=== PATIENT | male | born 1945 | race Caucasian/White ===

== ENCOUNTER 2020-05-02 13:30 | Inpatient (IN) | payer MEDICARE, OTHER ==
[~2020-05-02] VITALS: Ht 182.9 cm; Wt 91.5 kg
[2020-05-02] MEDS ORDERED: IV NORMAL SALINE 500ML 500 ML IV ONE (14:00)
--- NOTE | 2020-05-02 14:01 | PHYS DOC ---
Adult General Chief Complaint Chief Complaint: ALTERED MENTAL STATUS HPI HPI Patient is a 75-year-old male who presents via EMS for altered mental status. Little is known about patient and he is a poor historian. Per EMS report, patient was recently hospitalized at [facility] for sepsis with source being pneumonia. He had a lengthy inpatient stay and was subsequently discharged to local LTAC facility for further care. LTAC staff noticed decreased mentation per baseline from when they saw him on arrival over the past 1 week prompting them to call EMS for transport and evaluation at our facility today. It is unknown what his previous baseline mentation is at this time. Per chart review, it is confirmed that he was recently treated for pneumonia. It also appears that he has cirrhosis of the liver, acute lymphocytic anemia for which details are unknown, among other serious medical comorbidities such as CAD with prior CABG, pacemaker, and Greenwood catheter that has not been changed since arrival to outpatient facility. He was recently tested for COVID on April 05 and negative, has not had any recorded fever or known COVID-19 positive contacts. At this time, outlying facility reported he is a full code Review of Systems Review of Systems Fourteen body systems of review of systems have been reviewed. See HPI for pertinent positives and negative responses, other watts all other systems are negative, non-pertinent or non-contributory Physical Exam Physical Exam Constitutional: Well developed, well nourished, no acute distress, non-toxic appearance, appears fluid overloaded with obvious anasarca to bilateral lower extremities up to his waist. [] HENT: Normocephalic, atraumatic, bilateral external ears normal, oropharynx moist, no oral exudates, nose normal. [] Eyes: PERRLA, EOMI, conjunctiva normal, yellow discharge noted to left eyelid [] Neck: Normal range of motion, no tenderness, supple, no stridor. [] Cardiovascular:Heart rate regular rhythm, no murmur [] Lungs & Thorax: Bilateral breath sounds coarse bilaterally [] Abdomen: Bowel sounds normal, soft, protuberant abdomen, no tenderness, no m asses, no pulsatile masses. [] Skin: Warm, dry, no erythema, no rash. [] Back: No tenderness, no CVA tenderness. [] Extremities: No tenderness, no cyanosis, no clubbing, ROM intact, 4+ pitting edema to bilateral lower extremities [] Neurologic: Alert and oriented to self only, believes year is 1920, believes he is located in [facility], normal motor function, normal sensory function, no focal deficits noted. [] Psychologic: Flat affect, mood appropriate for situation [] Current Patient Data Vital Signs Vital Signs Date Time Temp Pulse Resp B/P (MAP) Pulse Ox O2 Delivery O2 Flow Rate FiO2 05/02/20 17:35 72 18 133/52 (79) 96 Nasal Cannula 4.0 05/02/20 17:05 78 25 118/73 (88) 94 Nasal Cannula 4.0 05/02/20 16:36 72 21 120/73 (89) 97 Nasal Cannula 4.0 05/02/20 16:05 70 30 127/78 (94) 94 Nasal Cannula 4.0 05/02/20 15:35 70 24 126/77 (93) 94 Nasal Cannula 4.0 05/02/20 15:06 71 28 119/66 (83) 95 Nasal Cannula 4.0 05/02/20 14:36 71 25 113/73 (86) 97 Nasal Cannula 4.0 05/02/20 14:05 74 24 121/74 (90) 94 Nasal Cannula 4.0 05/02/20 13:30 98.5 70 22 102/70 (81) 97 Nasal Cannula 4.0 Lab Results Laboratory Tests Test 05/02/20 14:05 05/02/20 14:59 05/02/20 16:20 05/02/20 17:55 White Blood Count 14.0 x10^3/uL Red Blood Count 4.15 x10^6/uL Hemoglobin 12.1 g/dL Hematocrit 38.1 % Mean Corpuscular Volume 92 fL Mean Corpuscular Hemoglobin 29 pg Mean Corpuscular Hemoglobin Concent 32 g/dL Red Cell Distribution Width 24.1 % Platelet Count 133 x10^3/uL Neutrophils (%) (Auto) 75 % Lymphocytes (%) (Auto) 17 % Monocytes (%) (Auto) 8 % Eosinophils (%) (Auto) 0 % Basophils (%) (Auto) 0 % Neutrophils # (Auto) 10.5 x10^3uL Lymphocytes # (Auto) 2.4 x10^3/uL Monocytes # (Auto) 1.1 x10^3/uL Eosinophils # (Auto) 0.0 x10^3/uL Basophils # (Auto) 0.0 x10^3/uL Platelet Estimate Decreased Anisocytosis Mod Macrocytosis Mod Sodium Level 136 mmol/L Potassium Level 3.6 mmol/L Chloride Level 101 mmol/L Carbon Dioxide Level 27 mmol/L Anion Gap 8 Blood Urea Nitrogen 17 mg/dL Creatinine 0.8 mg/dL Estimated GFR (Cockcroft-Gault) 94.0 BUN/Creatinine Ratio 21 Glucose Level 92 mg/dL Calcium Level 9.8 mg/dL Magnesium Level 2.0 mg/dL Total Bilirubin 1.5 mg/dL Aspartate Amino Transf (AST/SGOT) 61 U/L Alanine Aminotransferase (ALT/SGPT) 39 U/L Alkaline Phosphatase 314 U/L Ammonia < 10 mcmol/L Creatine Kinase 67 U/L Troponin I Quantitative 0.048 ng/mL OF-Nqy-G-Type Natriuretic Peptide 1066 pg/mL Total Protein 4.9 g/dL Albumin 2.0 g/dL Albumin/Globulin Ratio 0.7 Glucose (Fingerstick) 97 mg/dL Urine Collection Type U cath Urine Color Straw Urine Clarity Turbid Urine pH 5.5 Urine Specific [place] >=1.030 Urine Protein >100 mg/dl Urine Glucose (UA) Neg mg/dL Urine Ketones (Stick) Trace mg/dL Urine Blood Large Urine Nitrite Pos Urine Bilirubin Neg Urine Urobilinogen Dipstick 1.0 mg/dL Urine Leukocyte Esterase Trace Urine RBC 11-20 /HPF Urine WBC Tntc /HPF Urine Bacteria Mod /HPF Urine Opiates Screen Neg Urine Methadone Screen Neg Urine Barbiturates Neg Urine Phencyclidine Screen Neg Urine Amphetamine/Methamphetamine Neg Urine Benzodiazepines Screen Neg Urine Cocaine Screen Neg Urine Cannabinoids Screen Pos Urine Ethyl Alcohol Neg Lactic Acid Level 2.1 mmol/L Current Medications Medications (Trade) Dose Ordered Sig/Samia Route PRN Reason Start Time Stop Time Status Last Admin Dose Admin Sodium Chloride 500 ml @ 0 mls/hr 1X ONCE IV 05/02/20 14:00 05/02/20 14:53 DC 05/02/20 14:51 EKG EKG EKG ordered and interpreted by myself at 1410 hrs. as an idioventricular rhythm at 71 bpm, prolonged QTC at 534, no axis deviation, no ischemic findings, no STEMI [] Radiology/Procedures Radiology/Procedures PROCEDURE: PORTABLE CHEST 1V Single AP view of the chest. Comparison: None. Indication: Altered mental status Findings: Sternotomy wires and left subclavian pacemaker identified. There is a right internal jugular Port-A-Cath with the tip at the SVC right atrial junction.. The heart is enlarged but stable. There is no pneumothorax or effusion. No air space or interstitial disease. Impression: 1. No acute cardiopulmonary process. Electronically signed by: Sourav Marr MD (05/02/2020 2:42 PM) [id number] Course & Med Decision Making Course & Med Decision Making Airway patent, breathing unlabored, vital signs obtained and initially hypoten sive History limited due to patient's disorientation and fact that he is a poor historian, comprehensive physical exam and subsequent laboratory and imaging studies ordered IV access obtained, initially fluid resuscitated with 500 mL IV normal saline and passive leg raise maneuver performed with improvement in patient's presenting hypotension. Further fluid resuscitation efforts were discontinued due to patient's third spacing ED course reviewed, concern for sepsis with source being UTI. He also has what appears to be left bacterial conjunctivitis. Patient past medical history complicated, case complicated due to decreased mentation and lack of history In all, I made decision to admit patient for further medical evaluation, diagnostic work-up, and intervention On-call hospitalist, Dr. Combs, was contacted and case discussed. He agreed given complexity of patient case that he required ICU admission and continued medical management Despite patient's disorientation, I discussed case with him, he was agreeable to admission for further medical intervention. He remains full code at this time. We have been unsuccessful trying to contact family members at this time. Patient stabilized prior to ER departure to [facility] for continued medical management in the ICU Critical Care Time This patient required critical care. Due to the fact that the patient required a significant amount of one on one physician - patient contact time, ordering and review of studies, arranging urgent treatment with development of a management plan, evaluation of patients response to treatment with frequent reassessments, and discussions with other providers this patient required critical care time in excess of 30 minutes. Critical care time was indicated due to the inherent instability and/or potential for instability in this patient. The critical care time that is allocated to this patient is above and beyond any time spent on any other billable procedures performed on this patient. Dragon Disclaimer Dragon Disclaimer This electronic medical record was generated, in whole or in part, using a voice recognition dictation system. Date and Time of Assessment Date: May 02, 2020 Time: 14:00 Vital Signs Vital Signs Vital Signs Date Time Temp Pulse Resp B/P (MAP) Pulse Ox O2 Delivery O2 Flow Rate FiO2 05/02/20 17:35 72 18 133/52 (79) 96 Nasal Cannula 4.0 05/02/20 13:30 98.5 Respirations Respiratory Effort: Normal Respiratory Pattern: Normal Cardiovascular Pulse Rhythm: Regular Lung Sounds Breath Sounds: Coarse Capillary Refill Capillary Refill: Rt Hand < 3 seconds Peripheral Pulse Pulse Location: Monitor Pulse Strength: Normal (2+) Pulse Assessment Method: Monitor Integumentary Skin: Warm Skin Moisture: Dry Skin Turgor: Normal Skin Color: warm, dry Fingernail Color: WNL Departure Departure: Impression: Primary Impression: Sepsis Additional Impressions: UTI (urinary tract infection) Bacterial conjunctivitis of left eye History of acute lymphoblastic leukemia (ALL) Anasarca Cirrhosis Normocytic anemia Disposition: 01 HOME/RESIDENCE PRIOR TO ADM Condition: STABLE Referrals: ERICA HAYDEN MD (PCP) Justification of Admission: Justification of Admission: Justification of Admission Dx: Yes Sepsis: Altered Mental Status Problem Qualifiers EH SHUKLA DO May 02, 2020 14:01
[2020-05-02 14:30] LABS: BASO % 0 % (0-3); EOS % 0 % (0-3); HEMATOCRIT 38.1 % (39.0-53.0); HEMOGLOBIN 12.1 g/dL (13.0-17.5); LYMPH # 2.4 x10^3/uL (1.0-4.8); LYMPH % 17 % (24-48); MEAN CORPUSCULAR HEMOGLOBIN 29 pg (25-35); MEAN CORPUSCULAR HGB CONC 32 g/dL (31-37); MEAN CORPUSCULAR VOLUME 92 fL (79-100); MONO # 1.1 x10^3/uL (0.0-1.1); MONO % 8 % (0-9); NEUT # 10.5 x10^3uL (1.8-7.7); NEUT % 75 % (31-73); PLATELET COUNT 133 x10^3/uL (140-400); RED BLOOD COUNT 4.15 x10^6/uL (4.30-5.70); RED CELL DISTRIBUTION WIDTH 24.1 % (11.5-14.5)
--- NOTE | 2020-05-02 14:45 | RAD ---
Single AP view of the chest. Comparison: None. Indication: Altered mental status Findings: Sternotomy wires and left subclavian pacemaker identified. There is a right internal jugular Port-A-Cath with the tip at the SVC right atrial junction.. The heart is enlarged but stable. There is no pneumothorax or effusion. No air space or interstitial disease. Impression: 1. No acute cardiopulmonary process. Electronically signed by: Sourav Marr MD (05/02/2020 2:42 PM) [id number]
[2020-05-02 14:55] LABS: PLT ESTIMATE DECREASED (ADEQUATE)
[2020-05-02 14:56] LABS: ANISOCYTOSIS MOD
--- NOTE | 2020-05-02 15:52 | EKG ---
[address] [address] Test Date: 2020-05-02 Test Time: 14:06:25 Pat Name: BRONSON ANDRADE Department: Room: Gender: M Health Coordinator: : 1945 Requested By: EH SHUKLA Order Number: [id number] Reading MD: Measurements Intervals [place] Rate: 71 P: DC: QRS: -7 QRSD: 206 T: 123 QT: 486 QTc: 534 Interpretive Statements SINUS RHYTHM LEFTWARD AXIS LOW LIMB LEAD VOLTAGE NON SPECIFIC INTRAVENTRICULAR BLOCK QRS(T) CONTOUR ABNORMALITY CONSIDER INFERIOR INFARCT ABNORMAL ECG RI6.02 No previous ECG available for comparison
[2020-05-02] MEDS ORDERED: cefTRIAXone SODIUM 1 GM VIAL ONE (16:30)
[2020-05-02] MEDS ORDERED: IV NORMAL SALINE 50ML 50 ML ONE (16:30)
[2020-05-02] MEDS ORDERED: IV NORMAL SALINE 100ML 100 ML ONE (16:36)
[2020-05-02 16:42] LABS: BARBITURATES NEG (NEG); BENZODIAZEPINES NEG (NEG); CANNABINOIDS POS (NEG); COCAINE NEG (NEG); METHADONE NEG (NEG); OPIATES NEG (NEG); PHENCYCLIDINE NEG (NEG)
[2020-05-02 16:43] LABS: AMPHETAMINE/METHAMPHETAMINE NEG (NEG)
[2020-05-02 16:47] LABS: CLARITY,URINE TURBID; COLOR,URINE STRAW
[2020-05-02 16:48] LABS: BILIRUBIN,URINE NEG (NEG); GLUCOSE,URINE NEG (NEG); NITRITE,URINE POS (NEG)
[2020-05-02 16:49] LABS: BACTERIA,URINE MOD /HPF (0-FEW); WBC,URINE TNTC /HPF (0-4)
--- NOTE | 2020-05-02 17:48 | HP ---
ADMIT DATE: 05/02/2020 ADMISSION HISTORY AND PHYSICAL ATTENDING PHYSICIAN: Dr. Dailey. CHIEF COMPLAINT: Altered mentation. HISTORY OF PRESENT ILLNESS: The patient is age 75, has multiple medical issues. He was recently sent to a local [facility] for followup regarding pneumonia and sepsis due to Escherichia coli. This was earlier on 04/14/2020. He has been managed there but brought in today with altered mentation. Clinically, he appears intravascularly dry with a diminished blood pressures, but he has third space edema with significant swelling and anasarca extending all the way up his legs, thighs and then into his lower abdomen. There is a longstanding history of iron deficiency anemia along with cirrhosis of the liver. He was a heavy drinker at one time. In the chart, there is also a diagnosis of acute lymphoblastic anemia and relapsed, I do not know the details of the staging. He has had COPD with chronic respiratory failure, Streptococcus pneumoniae, recently treated, paroxysmal atrial fibrillation, acute on chronic diastolic congestive heart failure, iron deficiency anemia, thrombocytopenia, type 2 diabetes, diabetic neuropathy, hyperlipidemia, hypertension and hypertensive heart disease. He also has atherosclerotic heart disease with previous bypass surgery. He has also had gastroesophageal reflux disease, benign prostatic hypertrophy, ascites, cognitive disorders with some baseline dementia, cardiac pacemaker, presence of a prosthetic heart valve and oxygen-dependent chronic obstructive pulmonary disease. In the ED, he had a chest x-ray, which showed vascular congestion, no acute infiltrates, permanent pacemaker and cardiomegaly. CURRENT MEDICATIONS: Reviewed. These are from [place]. He was on scheduled Tylenol, acidophilus, Colace, Crestor 10 mg daily, Decadron 3 times a day for acute lymphoblastic anemia, finasteride, ipratropium, Lantus insulin, Marinol, metformin 1000 mg b.i.d., multivitamin, Neurontin, Protonix, trimethoprim sulfa, trazodone, Zofran, vitamin A and D. I do not see any anticoagulation and Coumadin dose is here. FAMILY HISTORY: Unobtainable. CODE STATUS: Unobtainable, we are in the process of ascertaining this. REVIEW OF SYSTEMS: Unfortunately unobtainable due to the patient's mentation. PHYSICAL EXAMINATION: GENERAL: When I saw him, this is a chronically ill-appearing gentleman. VITAL SIGNS: Initial vital signs in the ED showed a blood pressure very marginal in the 100 and 110 mmHg. He was cool. He was not febrile. HEENT: Head is without trauma. Pupils are reactive. Sclerae was nonicteric. Oropharynx is clear. NECK: Supple. No adenopathy. LUNGS: Diminished breath sounds at the bases. CARDIOVASCULAR: Showed distant heart tones. No gallops. Peripheral pulses were palpable, but weak. ABDOMEN: Distended, a bit tympanitic. I do not appreciate any fluid wave. I could not assess any liver or spleen enlargement at this time. EXTREMITIES: Show 4+ edema extending all the way up to his thighs and pelvis. NEUROLOGIC: The patient is speaking well. He has no focal deficits, but he remains very confused and disoriented. LABORATORY DATA: Admission hemoglobin was 12.1 g/dL with white count of 14,000. Nonfasting blood sugar is 97. Ammonia level was less than 10. CK was adequate. His BNP was 1066 and his troponin was 0.04. ASSESSMENT: 1. This 75-year-old gentleman has altered mentation, most likely on the basis of underlying dementia with hepatic encephalopathy, although his ammonia level is normal. Clinically, he has encephalopathy. This is metabolic whether it is hepatic related remains to be seen, in recent studies, there are no good correlation with serum ammonia, one can be encephalopathic without having elevated ammonia level. 2. Acute on chronic congestive heart failure. 3. Anasarca. I believe he is significantly in third space __ with significant edema and fluid collection, but intravascularly dry. 4. History of acute lymphoblastic leukemia, currently in remission. I am not aware of the treatment records of those are not available. 5. Recent pneumonia. 6. Recent sepsis with urinary tract infection. 7. Paroxysmal atrial fibrillation. 8. Iron deficiency anemia. 9. Type 2 diabetes. 10. Hypertension. 11. Chronic obstructive pulmonary disease. 12. History of ascites. 13. History of permanent cardiac pacemaker. He is not on any anticoagulation at this time. 14. Generalized debilitation. PLAN: 1. Admit to our ICU. 2. Gentle diuresis with monitoring his systolic blood pressure. 3. Serial chemistries. 4. I should contact the family to try to ascertain his code status. He tells me at one time, [facility], but those records are not available at this time. His prognosis remains quite poor with all other medical issues, I do believe this patient may be actively dying. Certainly comfort measures will be considered. I will try to ascertain the code status as soon as he is admitted. JO-ANN DAILEY MD DR: NELY/nestor JOB#: [id number] / [id number]
[2020-05-02 18:04] LABS: CALCIUM 9.8 mg/dL (8.5-10.1); CREATININE 0.8 mg/dL (0.7-1.3); POTASSIUM 3.6 mmol/L (3.5-5.1)
[2020-05-02 18:10] LABS: ALBUMIN/GLOBULIN RATIO 0.7 (1.0-1.7); TOTAL BILIRUBIN 1.5 mg/dL (0.2-1.0); TOTAL PROTEIN 4.9 g/dL (6.4-8.2)
--- NOTE | 2020-05-02 19:10 | NUR ---
Pt admitted from ER to ICU bed 3 via [facility], accompanied by EMS and nursing staff. Pt transferred from [facility] to bed x4 assist. Pt turned and skin assessment completed. Pt with multiple open bleeding pressure ulcer to bilateral buttock, pictures taken and placed in chart. Pt with excoriation to groin and 4+ edema from his upper thighs down to his ankles. Admission assessment completed. Pt is alert to self only and was able to tell me his birthday but otherwise confused and forgetful. Pt very lethargic and ill appearing. Health history and home medications per [facility] paperwork. Pt is a full code, verified with records and with [place]. Pt with 16F Green[place] cath in place, draining cloudy straw urine. Wound care, Dietary and Case management consulted. Pt was given written information regarding hospital policies, unit procedures and contact persons. Valuables were checked and left at bedside. Dr. Combs called for unit orders. Pt did trigger sepsis: Blood cx done in ER, IV Rocephin given and reordered for unit. Repeat Lactic still 2.1. Pt is not to receive IVF bolus. Pt was able to take HS meds crushed and ate snack that was fed to him. Bed alarm on.
[2020-05-02 19:29] VITALS: BP 123/78
[2020-05-02] MEDS ORDERED: [UNRECOGNIZED DRUG - OTHER] (19:36)
[2020-05-02] MEDS ORDERED: FINA5TAB4 PO (19:36)
[2020-05-02] MEDS ORDERED: METF10007 PO (19:36)
[2020-05-02] MEDS ORDERED: IPRA15SP NS (19:36)
[2020-05-02] MEDS ORDERED: DRON10CA5 PO (19:36)
[2020-05-02] MEDS ORDERED: DEXA1TAB PO (19:36)
[2020-05-02] MEDS ORDERED: TRAZ-125 PO (19:36)
[2020-05-02] MEDS ORDERED: ONDA8TAB9 PO (19:36)
[2020-05-02] MEDS ORDERED: PANT40TA3 PO (19:36)
[2020-05-02] MEDS ORDERED: IPRA3AMP29 NEB (19:36)
[2020-05-02] MEDS ORDERED: MULT-245 PO (19:36)
[2020-05-02] MEDS ORDERED: LACT1CAP6 PO (19:36)
[2020-05-02] MEDS ORDERED: DOCU-109 PO (19:36)
[2020-05-02] MEDS ORDERED: SULF-16 PO (19:36)
[2020-05-02] MEDS ORDERED: ACET325T21 PO (19:36)
[2020-05-02] MEDS ORDERED: INSU100I13 SQ (19:36)
[2020-05-02] MEDS ORDERED: GABA100C81 PO (19:36)
[2020-05-02] MEDS ORDERED: CRESTOR10 MG PO (19:36)
[2020-05-02 20:29] VITALS: BP 97/65
[2020-05-02] MEDS ORDERED: ONDANSETRON ODT 4 MG TAB.RAPDIS PO PRN (20:45)
[2020-05-02] MEDS ORDERED: FUROSEMIDE 80 MG TABLET PO SCH (21:00)
[2020-05-02] MEDS ORDERED: POTASSIUM CHLORIDE 20 MEQ TABLET.ER. PO SCH (21:00)
[2020-05-02 21:05] VITALS: BP 97/60
[2020-05-02] MEDS: DEXAMETHASONE 0.5 MG TABLET PO SCH (21:28)
[2020-05-02] MEDS: VITS A & D/LANOLIN TOPICAL OINTMENT 42GM TUBE. TP SCH (21:28)
[2020-05-02] MEDS: INSULIN GLARGINE SYRINGE. SQ SCH (21:29)
[2020-05-02] MEDS ORDERED: FUROSEMIDE 100 MG/10 ML VIAL IVP SCH (21:30)
[2020-05-02 21:57] VITALS: BP 106/69
[2020-05-02 23:00] VITALS: BP 108/69
[2020-05-02 23:30] VITALS: BP 106/67
[2020-05-03] VITALS (25 sets, daily range): BP systolic 92–116; BP diastolic 53–75
[2020-05-03 06:42] LABS: BASO % 0 % (0-3); EOS % 0 % (0-3); HEMATOCRIT 36.7 % (39.0-53.0); HEMOGLOBIN 11.8 g/dL (13.0-17.5); LYMPH # 2.6 x10^3/uL (1.0-4.8); LYMPH % 20 % (24-48); MEAN CORPUSCULAR HEMOGLOBIN 29 pg (25-35); MEAN CORPUSCULAR HGB CONC 32 g/dL (31-37); MEAN CORPUSCULAR VOLUME 90 fL (79-100); MONO # 1.1 x10^3/uL (0.0-1.1); MONO % 9 % (0-9); NEUT # 9.1 x10^3uL (1.8-7.7); NEUT % 71 % (31-73); PLATELET COUNT 134 x10^3/uL (140-400); RED BLOOD COUNT 4.06 x10^6/uL (4.30-5.70); WHITE BLOOD COUNT 12.9 x10^3/uL (4.0-11.0)
[2020-05-03 06:51] LABS: CALCIUM 9.2 mg/dL (8.5-10.1); CREATININE 0.9 mg/dL (0.7-1.3)
[2020-05-03 06:55] LABS: POTASSIUM 2.3 mmol/L (3.5-5.1)
[2020-05-03] MEDS ORDERED: MAGNESIUM SULFATE 1GM 100 ML IV ONE (07:00)
[2020-05-03] MEDS: FINASTERIDE 5 MG TABLET PO SCH (08:00)
[2020-05-03] MEDS: LACTOBACILLUS RHAMNOSUS GG 1 CAPSULE. PO SCH ×2 (08:00→20:45)
[2020-05-03] MEDS: PANTOPRAZOLE 40 MG TABLET. PO SCH (08:00)
[2020-05-03] MEDS: metFORMIN 500 MG TABLET PO SCH (08:00)
[2020-05-03] MEDS: POTASSIUM CHLORIDE 20 MEQ TABLET.ER. PO SCH ×2 (08:01→20:45)
[2020-05-03] MEDS: DEXAMETHASONE 0.5 MG TABLET PO SCH ×3 (08:01→20:46)
[2020-05-03] MEDS: VITS A & D/LANOLIN TOPICAL OINTMENT 42GM TUBE. TP SCH ×2 (09:00→21:00)
--- NOTE | 2020-05-03 09:09 | PN ---
DATE: 05/03/2020 ATTENDING PHYSICIAN: Dr. Dailey. SUBJECTIVE: He is better. He is awake. Yesterday, he was fairly encephalopathic. I believe there is underlying dementia, probably on the basis of cirrhosis and Wernicke-Korsakoff syndrome. In any event, the ammonia level really does not correlate. He is doing better today. He had an excellent response to diuresis. OBJECTIVE FINDINGS: VITAL SIGNS: Blood pressure today is marginal at 105/68, but is actually improved from this morning. His heart rate is 70 and paced, temperature 97.1 degrees Fahrenheit, oxygen saturation 94%, requiring 5 liters of supplemental oxygen by nasal cannula. HEENT: Head is without trauma. The pupils are reactive. The sclerae are nonicteric. The oropharynx is clear. There is no stridor. NECK: Supple, no bruits. LUNGS: Coarse rhonchi bilaterally. He also has diminished breath sounds. CARDIOVASCULAR: Showed regular heart tones. Peripheral pulses are palpable, but weak. There are no obvious gallops. ABDOMEN: Obese, protuberant. Hypoactive bowel sounds. I cannot appreciate any liver or splenic enlargement. He does have a bit of ascites fluid shift. EXTREMITIES: Still show 4+ pitting edema extending up to his thighs. PERTINENT LABORATORY STUDIES: His potassium is 2.3 mEq per liter, sodium 141, creatinine 0.9 mg percent, nonfasting blood sugar 108. ASSESSMENT: 1. A 75-year-old gentleman with altered mentation, most likely on the basis of hepatic encephalopathy. I do believe he has a component of Wernicke-Korsakoff syndrome. He is actually better. He is still confused, but he is able to have a fairly normal conversation. 2. Acute on chronic congestive heart failure, etiology to be determined whether this is ischemic or not. 3. Anasarca. I believe he is significantly third space wet with intravascularly dry component. 4. History of acute lymphoblastic leukemia, currently in remission. 5. Recent pneumonia. 6. Chronic obstructive pulmonary disease, advanced. 7. Recent sepsis with urinary tract infection. 8. Paroxysmal atrial fibrillation, currently paced rhythm. 9. Iron deficiency anemia. 10. Type 2 diabetes mellitus. 11. Essential hypertension. 12. Ascites. 13. History of permanent cardiac pacemaker. He is not on any anticoagulation this time. I suspect he is auto-anticoagulated from his liver disease. 14. Generalized debilitation. PLAN: 1. Keep in ICU. 2. He remains a DNR. I am trying to contact the to see if she has power of estate attorney. 3. Diuresis with Lasix. He has responded well. 4. Serial chemistries. 5. Potassium and magnesium replacement has been ordered. His prognosis remains poor given he has multiorgan system failure. I will call his later to ascertain his code status. JO-ANN DAILEY MD DR: NELY/nestor JOB#: [id number] / [id number]
--- NOTE | 2020-05-03 09:17 | PN ---
DATE: 05/03/2020 ADDENDUM I had a long discussion over the telephone with the patient's . I told her the diagnosis and what the plan is. She tells me that the patient does have advanced directives or living will. He is a DNR. Therefore, he will be made a DNR status. JO-ANN DAILEY MD DR: NELY/nestor JOB#: [id number] / [id number]
[2020-05-03] MEDS ORDERED: FUROSEMIDE 40 MG/4 ML VIAL IVP ONE (10:00)
[2020-05-03] MEDS ORDERED: POTASSIUM CHLORIDE 20 MEQ TABLET.ER. PO ONE (10:20)
--- NOTE | 2020-05-03 10:21 | PDOC2 ---
ARTURO FUNES MARIANA 05/03/20 1021: CARDIAC CONSULT DATE OF CONSULT DOS: DATE: 05/03/20 TIME: 10:11 REASON FOR CONSULT Reason for Consult CHF REFERRING PHYSICIAN Referring Physician Dr. Combs SOURCE Source: Chart review, Patient HPI History of Present Illness This is a 75 yo male who presented due to altered mental status. Was recently treated for PNA, sepsis at [facility]. Had lengthy hospitalization. Was discharged the LTAC facility. Staff recognized change in mentation over the past week which prompted further evaluation. Was noted in CHF, which prompted this consult. Does have extensive medical history including leukemia, cirrhosis, CAD, CHF, SSS, permanent AFIB, s/p bioprosthetic AVR, and COPD. Patient is confused and unable to prior any meaningful history. Present denies any shortness of breath of chest pain. PAST MEDICAL HISTORY Cardiovascular: AFIB, CAD, CHF, HTN, hyperipidemia, valve insufficiency Pulmonary: COPD, Pneumonia GI: GERD Heme/Onc: Anemia NOS, Other (B-cell lymphoblastic lymphoma) Hepatobiliary: Cirrhosis (with h/o heavy ETOH abuse ) Musculoskeletal: Osteoarthritis Renal/: Benign prostatic enlarg. Endocrine: Diabetes PAST SURGICAL HISTORY Past Surgical History: CABG, Pacemaker FAMILY HISTORY Family History: Family History Unknown SOCIAL HISTORY Smoke: No ALCOHOL: other (h/o heavy use ) Drugs: Marijuana Lives: with Family (has recently been at LTAC) CURRENT MEDICATIONS Current Medications Current Medications Sodium Chloride 500 ml @ 0 mls/hr 1X ONCE IV Last administered on 05/02/20at 14:51; Start 05/02/20 at 14:00; Stop 05/02/20 at 14:53; Status DC Ceftriaxone Sodium 2 gm/ Sodium Chloride 100 ml @ 200 mls/hr 1X ONCE IV Last administered on 05/02/20at 16:38; Start 05/02/20 at 16:30; Stop 05/02/20 at 16:59; Status DC Ceftriaxone Sodium (Rocephin) 1 gm STK-MED ONCE .ROUTE ; Start 05/02/20 at 16:30; Stop 05/02/20 at 16:30; Status DC Sodium Chloride 50 ml @ As Directed STK-MED ONCE .ROUTE ; Start 05/02/20 at 16:30; Stop 05/02/20 at 16:31; Status DC Ceftriaxone Sodium (Rocephin) 2 gm STK-MED ONCE IV ; Start 05/02/20 at 16:36; Stop 05/02/20 at 16:37; Status DC Sodium Chloride 100 ml @ As Directed STK-MED ONCE .ROUTE ; Start 05/02/20 at 16:36; Stop 05/02/20 at 16:37; Status DC Ceftriaxone Sodium 1 gm/ Sodium Chloride 50 ml @ 100 mls/hr Q24H IV ; Start 05/03/20 at 16:00 Potassium Chloride (Klor-Con) 20 meq BID PO Last administered on 05/02/20 21:28; Start 05/02/20 at 21:00; Stop 05/03/20 at 07:06; Status DC Furosemide (Lasix) 80 mg BID94 PO ; Start 05/02/20 at 21:00; Status Cancel Finasteride (Proscar) 5 mg DAILY PO Last administered on 05/03/20at 08:00; Start 05/03/20 at 09:00 Pantoprazole Sodium (Protonix) 40 mg DAILYAC PO Last administered on 05/03/20at 08:00; Start 05/03/20 at 07:30 Dexamethasone (Decadron) 1 mg TID PO Last administered on 05/03/20at 08:01; Start 05/02/20 at 21:00 Insulin Glargine (Lantus Syringe) 10 unit QHS SQ Last administered on 05/02/20at 21:29; Start 05/02/20 at 21:00 Metformin HCl (Glucophage) 1,000 mg DAILYWBKFT PO Last administered on 05/03/20at 08:00; Start 05/03/20 at 08:00 Ondansetron HCl (Zofran Odt) 8 mg PRN Q8HRS PRN PO NAUSEA/VOMITING; Start 05/02/20 at 20:45 Vitamin A/Vitamin D (Vitamin A & D Ointment) 1 ariel BID TP Last administered on 05/02/20 21:28; Start 05/02/20 at 21:00 Furosemide (Lasix) 80 mg BID94 IVP Last administered on 05/02/20 21:29; Start 05/02/20 at 21:30; Stop 05/03/20 at 07:06; Status DC Potassium Chloride (Klor-Con) 40 meq BID PO Last administered on 05/03/20at 08:01; Start 05/03/20 at 07:15 Magnesium Sulfate 100 ml @ 100 mls/hr 1X ONCE IV Last administered on 05/03/20at 08:01; Start 05/03/20 at 07:00; Stop 05/03/20 at 07:59; Status DC Furosemide (Lasix) 80 mg DAILY IVP ; Start 05/04/20 at 09:00 Lactobacillus Rhamnosus (Culturelle) 1 cap BID PO Last administered on 05/03/20at 08:00; Start 05/03/20 at 09:00 Furosemide (Lasix) 40 mg 1X ONCE IVP ; Start 05/03/20 at 10:00; Stop 05/03/20 at 10:01; Status UNV Potassium Chloride (Klor-Con) 40 meq 1X ONCE PO ; Start 05/03/20 at 10:00; Stop 05/03/20 at 10:01; Status UNV Active Scripts Active Reported [A & D Ointment] 1 Ariel BID Apply twice a day and as needed to Stage II Sacral Wound Colace (Docusate Sodium) 100 Mg Capsule 100 Mg PO PRN BID PRN Probiotic (Lactobacillus Acidophilus) 1 Each Capsule 1 Each PO BID Acetaminophen 325 Mg Tablet 650 Mg PO PRN Q6HRS PRN Protonix (Pantoprazole Sodium) 40 Mg Tablet.dr 40 Mg PO DAILYAC Neurontin (Gabapentin) 100 Mg Capsule 100 Mg PO TID Multi Vitamin Daily (Multivitamin) 1 Each Tablet 1 Each PO DAILY Metformin Hcl 1,000 Mg Tablet 1,000 Mg PO DAILYWBKFT Dronabinol 10 Mg Capsule 2.5 Mg PO BID Lantus Solostar (Insulin Glargine,Hum.rec.anlog) 100 Unit/1 Ml Insuln.pen 10 Unit SQ QHS Duoneb 0.5-3(2.5) Mg/3 Ml (Albuterol/Ipratropium) 3 Ml Ampul.neb 3 Ml NEB BID Ipratropium [place] 15 Ml [place] 15 Ml NS QID Finasteride 5 Mg Tablet 5 Mg PO DAILY Dexamethasone 1 Mg Tablet 1 Mg PO TID Crestor (Rosuvastatin Calcium) 10 Mg Tablet 10 Mg PO HS Zofran (Ondansetron Hcl) 8 Mg Tablet 8 Mg PO PRN Q8HRS PRN Trazodone Hcl 100 Mg Tablet 100 Mg PO HS Sulfamethoxazole-Tmp Ss Tablet (Sulfamethoxazole/Trimethoprim) 1 Each Tablet 1 Each PO QMWF Every Saturday, Saturday, and Saturday ALLERGIES Allergies: Coded Allergies: No Known Drug Allergies (Unverified , 05/02/20) ROS Review of Systems 14 point ROS conducted with pertinent positives noted above in HPI PHYSICAL EXAM General: Alert, Cooperative, Other (confused ) HEENT: Atraumatic Lungs: Other (diminished bases) Heart: Other (v-paced with underlying AFIB ) Abdomen: Soft Extremities: Other (2+ bilateral LE edema ) Skin: No breakdown Neuro: Sensation intact Psych/Mental Status: Other (confused ) MUSCULOSKELETAL: Osteoarthritic changes both hands VITALS Vital Signs Vital Signs Date Time Temp Pulse Resp B/P (MAP) Pulse Ox O2 Delivery O2 Flow Rate FiO2 05/03/20 08:00 76 20 102/63 (76) 94 Nasal Cannula 5.0 05/03/20 06:03 97.1 LABS LABS Laboratory Tests Test 05/02/20 14:05 05/02/20 14:59 05/02/20 16:20 05/02/20 17:55 White Blood Count 14.0 x10^3/uL (4.0-11.0) Red Blood Count 4.15 x10^6/uL (4.30-5.70) Hemoglobin 12.1 g/dL (13.0-17.5) Hematocrit 38.1 % (39.0-53.0) Mean Corpuscular Volume 92 fL (79-100) Mean Corpuscular Hemoglobin 29 pg (25-35) Mean Corpuscular Hemoglobin Concent 32 g/dL (31-37) Red Cell Distribution Width 24.1 % (11.5-14.5) Platelet Count 133 x10^3/uL (140-400) Neutrophils (%) (Auto) 75 % (31-73) Lymphocytes (%) (Auto) 17 % (24-48) Monocytes (%) (Auto) 8 % (0-9) Eosinophils (%) (Auto) 0 % (0-3) Basophils (%) (Auto) 0 % (0-3) Neutrophils # (Auto) 10.5 x10^3uL (1.8-7.7) Lymphocytes # (Auto) 2.4 x10^3/uL (1.0-4.8) Monocytes # (Auto) 1.1 x10^3/uL (0.0-1.1) Eosinophils # (Auto) 0.0 x10^3/uL (0.0-0.7) Basophils # (Auto) 0.0 x10^3/uL (0.0-0.2) Platelet Estimate Decreased (ADEQUATE) Anisocytosis Mod Macrocytosis Mod Sodium Level 136 mmol/L (136-145) Potassium Level 3.6 mmol/L (3.5-5.1) Chloride Level 101 mmol/L (98-107) Carbon Dioxide Level 27 mmol/L (21-32) Anion Gap 8 (6-14) Blood Urea Nitrogen 17 mg/dL (8-26) Creatinine 0.8 mg/dL (0.7-1.3) Estimated GFR (Cockcroft-Gault) 94.0 BUN/Creatinine Ratio 21 (6-20) Glucose Level 92 mg/dL (70-99) Calcium Level 9.8 mg/dL (8.5-10.1) Magnesium Level 2.0 mg/dL (1.8-2.4) Total Bilirubin 1.5 mg/dL (0.2-1.0) Aspartate Amino Transf (AST/SGOT) 61 U/L (15-37) Alanine Aminotransferase (ALT/SGPT) 39 U/L (16-63) Alkaline Phosphatase 314 U/L (46-116) Ammonia < 10 mcmol/L (11-34) Creatine Kinase 67 U/L (39-308) Troponin I Quantitative 0.048 ng/mL (0-0.055) AJ-Nbl-D-Type Natriuretic Peptide 1066 pg/mL (0-449) Total Protein 4.9 g/dL (6.4-8.2) Albumin 2.0 g/dL (3.4-5.0) Albumin/Globulin Ratio 0.7 (1.0-1.7) Glucose (Fingerstick) 97 mg/dL (70-99) Urine Collection Type U cath Urine Color Straw Urine Clarity Turbid Urine pH 5.5 Urine Specific [place] >=1.030 Urine Protein >100 mg/dl (NEG-TRACE) Urine Glucose (UA) Neg mg/dL (NEG) Urine Ketones (Stick) Trace mg/dL (NEG) Urine Blood Large (NEG) Urine Nitrite Pos (NEG) Urine Bilirubin Neg (NEG) Urine Urobilinogen Dipstick 1.0 mg/dL (0.2 mg/dL) Urine Leukocyte Esterase Trace (NEG) Urine RBC 11-20 /HPF (0-2) Urine WBC Tntc /HPF (0-4) Urine Bacteria Mod /HPF (0-FEW) Urine Opiates Screen Neg (NEG) Urine Methadone Screen Neg (NEG) Urine Barbiturates Neg (NEG) Urine Phencyclidine Screen Neg (NEG) Urine Amphetamine/Methamphetamine Neg (NEG) Urine Benzodiazepines Screen Neg (NEG) Urine Cocaine Screen Neg (NEG) Urine Cannabinoids Screen Pos (NEG) Urine Ethyl Alcohol Neg (NEG) Lactic Acid Level 2.1 mmol/L (0.4-2.0) Test 05/02/20 20:54 05/02/20 21:25 05/03/20 00:38 05/03/20 06:15 Glucose (Fingerstick) 92 mg/dL (70-99) 132 mg/dL (70-99) Lactic Acid Level 2.1 mmol/L (0.4-2.0) White Blood Count 12.9 x10^3/uL (4.0-11.0) Red Blood Count 4.06 x10^6/uL (4.30-5.70) Hemoglobin 11.8 g/dL (13.0-17.5) Hematocrit 36.7 % (39.0-53.0) Mean Corpuscular Volume 90 fL (79-100) Mean Corpuscular Hemoglobin 29 pg (25-35) Mean Corpuscular Hemoglobin Concent 32 g/dL (31-37) Red Cell Distribution Width 24.0 % (11.5-14.5) Platelet Count 134 x10^3/uL (140-400) Neutrophils (%) (Auto) 71 % (31-73) Lymphocytes (%) (Auto) 20 % (24-48) Monocytes (%) (Auto) 9 % (0-9) Eosinophils (%) (Auto) 0 % (0-3) Basophils (%) (Auto) 0 % (0-3) Neutrophils # (Auto) 9.1 x10^3uL (1.8-7.7) Lymphocytes # (Auto) 2.6 x10^3/uL (1.0-4.8) Monocytes # (Auto) 1.1 x10^3/uL (0.0-1.1) Eosinophils # (Auto) 0.0 x10^3/uL (0.0-0.7) Basophils # (Auto) 0.0 x10^3/uL (0.0-0.2) Sodium Level 141 mmol/L (136-145) Potassium Level 2.3 mmol/L (3.5-5.1) Chloride Level 103 mmol/L (98-107) Carbon Dioxide Level 30 mmol/L (21-32) Anion Gap 8 (6-14) Blood Urea Nitrogen 16 mg/dL (8-26) Creatinine 0.9 mg/dL (0.7-1.3) Estimated GFR (Cockcroft-Gault) 82.0 Glucose Level 108 mg/dL (70-99) Calcium Level 9.2 mg/dL (8.5-10.1) ECHOCARDIOGRAM Echocardiogram 09/23/19 - TRANSESOPHAGEAL ECHOCARDIOGRAM Interpretation Summary Study 1 year post watchman. Watchman device is well seated. No hallie-device regurgitation is seen. There is no evidence of LA or RA thrombus. The interatrial septum appears intact. No PFO or residual ASD from transeptal by color Doppler There is a normally functioning 23mm Biocar prosthesis in the aortic position. MG=19mmHg. There is no regurgitation. There is normal biventricular systolic function with estimated LVEF=60%. ASSESSMENT/PLAN Assessment/Plan 1. Encephalopathy in setting of UTI 2. Acute on chronic diastolic CHF 3. CAD s/p CABG. CP free. Clinically stable 4. SSS s/p PPM (single chamber [facility]). Recent device check with normal function. Follows with MICK[facility] Espitia 5. Hypertension; low end 6. Hyperlipidemia; on Crestor 7. Diabetes, II; as per IM 8. s/p bioprosthetic AVR in 2008 9. Permanent AFIB s/p Watchman device. Previously on warfarin therapy, but this was discontinued d/t GIB 10. Cirrhosis with history of heavy alcoholism 11. Anasarca, protein calorie malnutrition 12. Leukocytosis, lactic acidosis. Recent admission of PNA/sepsis at [facility] 13. Hypokalemia, severe 14. BPH; on flomax 15. UTI; antibiotic therapy 16. B-cell lymphoblastic lymphoma Recommendations Diuresis as BP allows. Echo ordered Check Mg Monitor labs, electrolytes and replace as warranted Consider albumin Ongoing antibiotic therapy Supportive care DEDRICK WORTHINGTON MD 05/03/20 1433: CARDIAC CONSULT ASSESSMENT/PLAN Assessment/Plan Patient seen and examined. Agree with SPRINKLER FITTER's assessment and plan. Continue diuresis for acute on chronic diastolic heart failure. Recent ARTEMIO showed normal LV systolic function. Permanent atrial fibrillation, rate controlled. s/p Watchman LAAO with recent ARTEMIO showing well-seated device. s/p bioprosthetic AVR, CAD s/p CABG, SSS s/p PPM clinically stable Mental status changes secondary to metabolic encephalopathy from UTI Continue antibiotics per IM Thank you for your consultation ARTURO FUNES APRN May 03, 2020 10:21 DEDIRCK WORTHINGTON MD May 03, 2020 14:33
[2020-05-03 10:24] LABS: PLT ESTIMATE DECREASED (ADEQUATE)
[2020-05-03 10:25] LABS: OVALOCYTES FEW; POLYCHROMASIA PRESENT; TEAR DROP CELLS FEW
[2020-05-03 10:26] LABS: ANISOCYTOSIS SLIGHT
--- NOTE | 2020-05-03 14:38 | CARD ---
MR#: [id number] Date of Study: 05/03/2020 Ordering Physician: JO-ANN DAILEY, Referring Physician: JO-ANN DAILEY, Tech: Raissa Albarado APPROVED REPORT EXAM: Two-dimensional and M-mode echocardiogram with Doppler and color Doppler. Other Information Quality : FairHR: 71bpm Technically limited study due to INDICATION Congestive Heart Failure Surgery/Intervention Status/Post Aortic Valve Replacement: Date: 2016 2D DIMENSIONS Left Atrium(2D)4.1 (1.6-4.0cm)IVSd1.1 (0.7-1.1cm) Aortic Root(2D)2.7 (2.0-3.7cm)LVDd4.5 (3.9-5.9cm) LVOT Diameter1.9 (1.8-2.4cm)PWd1.2 (0.7-1.1cm) LVDs3.0 (2.5-4.0cm)FS (%) 33.9 % SV57.3 mlLVEF(%)62.9 (>50%) Aortic Valve AoV Peak Brian.267.3cm/sAoV VTI50.8cm AO Peak GR.22.9mmHgLVOT Peak Brian.153.1cm/s LVOT VTI 30.32cmAO Mean GR.14mmHg KENISHA (VMAX)1.64ll1TGK (VTI)1.71cm2 Mitral Valve MV E Utdqctvh48.9cm/sMV E Peak Gr.2mmHg MV DECEL [id number] A Poxnsipm53.1cm/s MV E Mean Gr.1mmHgE/A Ratio1.9 Pulmonary Valve PV Peak Aplfaabm979.0cm/sPV Peak Grad.4mmHg Tricuspid Valve TR P. [id number]/sRAP [id number] TR Peak Gr.80zlEcXLRA06foYk LEFT VENTRICLE The left ventricle is normal size. There is mild concentric left ventricular hypertrophy. The left ve ntricular systolic function is normal. The Ejection Fraction is 60%. Septal wall consistent with pace maker activation. Transmitral Doppler flow pattern is Grade II-pseudonormal filling dynamics. RIGHT VENTRICLE The right ventricle is mildly dilated. There is normal right ventricular wall thickness. The right ve ntricular systolic function is normal. There is a pacemaker lead in the right ventricle. ATRIA The left atrium is mildly to moderately dilated. The right atrium is moderately dilated. The interatr ial septum is intact with no evidence for an atrial septal defect or patent foramen ovale as noted on 2-D or Doppler imaging. AORTIC VALVE Doppler and Color Flow revealed no significant aortic regurgitation. Calculated aortic valve area is 2.1 cm2 with maximum pressure gradient of 29 mmHg and mean pressure gradient of 14 mmHg. The bioprost hetic aortic valve appears normal. MITRAL VALVE The mitral valve is normal in structure and function. There is no evidence of mitral valve prolapse. There is no mitral valve stenosis. Doppler and Color Flow revealed no mitral valve regurgitation note d. TRICUSPID VALVE The tricuspid valve is normal in structure and function. Doppler and Color Flow revealed mild tricusp id regurgitation with an estimated PAP of 41 mmHg. There is no tricuspid valve stenosis. PULMONIC VALVE The pulmonic valve is not well visualized. Doppler and Color Flow revealed no pulmonic valvular regur gitation. GREAT VESSELS The aortic root is normal in size. The IVC is normal in size and collapses >50% with inspiration. PERICARDIAL EFFUSION There is no evidence of significant pericardial effusion. Critical Notification Critical Value: No <Conclusion> The left ventricular systolic function is normal. The Ejection Fraction is 60%. Septal wall consistent with pacemaker activation. Transmitral Doppler flow pattern is Grade II-pseudonormal filling dynamics. There is a pacemaker lead in the right atrium and right ventricle. The left atrium is mildly to moderately dilated. The bioprosthetic aortic valve appears to be well seated and functioning well.. Mean gradient 14 mmH g. Mild tricuspid regurgitation with an estimated PAP of 41 mmHg. There is no evidence of significant pericardial effusion. Signed by : Flaquito Dejesus, Electronically Approved : 05/03/2020 14:38:20
--- NOTE | 2020-05-03 16:28 | NUR ---
Wound Care Wound Type/Assessment: patient seen per wound care consult. see wound assessment. wound assessed and measured at this time. patient has a bilateral buttock stage 3 pressure ulcer with DTI. Treatment Recommendations/Plan: Recommendations of continuing with A & D ointment, as ordered. patient needs to be turning every 2 hours. patient turned to the right side at this time with the wedge. Offloading surface/device: patient currently on an ICU bed at this time. Notified CHAYO Allison about the POC and wound care will continue to f/u for changes
--- NOTE | 2020-05-03 18:37 | NUR ---
PT still lethargic today. Pt is somewhat more interactive, just tired. PT is partially able to verbalize understanding of poc. involved in care and did bring his cell phone up today. Sixto DOMINGO
[2020-05-03 19:35] LABS: CREATININE 0.9 mg/dL (0.7-1.3)
[2020-05-03 19:42] LABS: POTASSIUM 2.4 mmol/L (3.5-5.1)
[2020-05-03] MEDS: INSULIN GLARGINE SYRINGE. SQ SCH (21:30)
[2020-05-04] VITALS (16 sets, daily range): BP systolic 96–112; BP diastolic 40–73
--- NOTE | 2020-05-04 04:41 | NUR ---
Pt oriented to self only. Date, location and purpose of visit is understood but not retained when explained to him. Pt slept most of shift. Woke for med pass; ate a couple bites of ice cream with medications. He c/o generalized aches when rolling, unable to unspecify location or quality. He prefers lying on his right side but also measures lower blood pressure while on the right side. Pt is pleasant and cooperative during position changes but not helpful. Pt frequently moves nasal cannula above his nose while sleeping. Will continue to monitor.
[2020-05-04 06:37] LABS: BASO % 0 % (0-3); EOS % 0 % (0-3); HEMATOCRIT 34.3 % (39.0-53.0); LYMPH # 2.2 x10^3/uL (1.0-4.8); LYMPH % 18 % (24-48); MEAN CORPUSCULAR HEMOGLOBIN 29 pg (25-35); MEAN CORPUSCULAR HGB CONC 32 g/dL (31-37); MEAN CORPUSCULAR VOLUME 91 fL (79-100); MONO % 8 % (0-9); NEUT # 9.4 x10^3uL (1.8-7.7); NEUT % 74 % (31-73); PLATELET COUNT 100 x10^3/uL (140-400); RED BLOOD COUNT 3.79 x10^6/uL (4.30-5.70); RED CELL DISTRIBUTION WIDTH 23.6 % (11.5-14.5); WHITE BLOOD COUNT 12.7 x10^3/uL (4.0-11.0)
[2020-05-04 06:45] LABS: CALCIUM 8.6 mg/dL (8.5-10.1); CREATININE 0.8 mg/dL (0.7-1.3)
[2020-05-04 06:49] LABS: POTASSIUM 2.7 mmol/L (3.5-5.1)
[2020-05-04] MEDS ORDERED: POTASSIUM CHLORIDE 20 MEQ TABLET.ER. PO ONE ×2 (08:00→09:00)
[2020-05-04] MEDS: FINASTERIDE 5 MG TABLET PO SCH (08:37)
[2020-05-04] MEDS: metFORMIN 500 MG TABLET PO SCH (08:37)
[2020-05-04] MEDS: PANTOPRAZOLE 40 MG TABLET. PO SCH (08:38)
[2020-05-04] MEDS: LACTOBACILLUS RHAMNOSUS GG 1 CAPSULE. PO SCH ×2 (08:38→21:09)
[2020-05-04] MEDS: POTASSIUM CHLORIDE 20 MEQ TABLET.ER. PO SCH ×10 (08:39→21:08)
[2020-05-04] MEDS: DEXAMETHASONE 0.5 MG TABLET PO SCH ×3 (08:41→21:08)
[2020-05-04] MEDS: VITS A & D/LANOLIN TOPICAL OINTMENT 42GM TUBE. TP SCH ×2 (09:00→21:07)
[2020-05-04] MEDS ORDERED: FUROSEMIDE 100 MG/10 ML VIAL IVP SCH (09:00)
--- NOTE | 2020-05-04 09:19 | PDOC ---
CARDIO Progress Notes Date & Time Date of Service DATE: 05/04/20 TIME: 09:13 Time of Evaluation 09:13 Subjective Notes feels sleepy. No chest pain, palpitations, dizziness, diaphoresis Vitals Vitals Vital Signs Date Time Temp Pulse Resp B/P (MAP) Pulse Ox O2 Delivery O2 Flow Rate FiO2 05/04/20 06:38 70 14 107/73 (84) 97 Nasal Cannula 5.0 05/04/20 04:25 97.0 Weight Weight [ ] Input and Output I.O. Intake and Output 05/04/20 07:00 Intake Total 1325 ml Output Total 1950 ml Balance -625 ml Intake Oral 1175 ml IV Total 150 ml Output Urine Total 1950 ml # Voids 50 # Bowel Movements 1 Laboratory Labs Laboratory Tests Test 05/02/20 14:05 05/02/20 14:59 05/02/20 16:20 05/02/20 17:55 White Blood Count 14.0 x10^3/uL (4.0-11.0) Red Blood Count 4.15 x10^6/uL (4.30-5.70) Hemoglobin 12.1 g/dL (13.0-17.5) Hematocrit 38.1 % (39.0-53.0) Mean Corpuscular Volume 92 fL (79-100) Mean Corpuscular Hemoglobin 29 pg (25-35) Mean Corpuscular Hemoglobin Concent 32 g/dL (31-37) Red Cell Distribution Width 24.1 % (11.5-14.5) Platelet Count 133 x10^3/uL (140-400) Neutrophils (%) (Auto) 75 % (31-73) Lymphocytes (%) (Auto) 17 % (24-48) Monocytes (%) (Auto) 8 % (0-9) Eosinophils (%) (Auto) 0 % (0-3) Basophils (%) (Auto) 0 % (0-3) Neutrophils # (Auto) 10.5 x10^3uL (1.8-7.7) Lymphocytes # (Auto) 2.4 x10^3/uL (1.0-4.8) Monocytes # (Auto) 1.1 x10^3/uL (0.0-1.1) Eosinophils # (Auto) 0.0 x10^3/uL (0.0-0.7) Basophils # (Auto) 0.0 x10^3/uL (0.0-0.2) Platelet Estimate Decreased (ADEQUATE) Anisocytosis Mod Macrocytosis Mod Sodium Level 136 mmol/L (136-145) Potassium Level 3.6 mmol/L (3.5-5.1) Chloride Level 101 mmol/L (98-107) Carbon Dioxide Level 27 mmol/L (21-32) Anion Gap 8 (6-14) Blood Urea Nitrogen 17 mg/dL (8-26) Creatinine 0.8 mg/dL (0.7-1.3) Estimated GFR (Cockcroft-Gault) 94.0 BUN/Creatinine Ratio 21 (6-20) Glucose Level 92 mg/dL (70-99) Calcium Level 9.8 mg/dL (8.5-10.1) Magnesium Level 2.0 mg/dL (1.8-2.4) Total Bilirubin 1.5 mg/dL (0.2-1.0) Aspartate Amino Transf (AST/SGOT) 61 U/L (15-37) Alanine Aminotransferase (ALT/SGPT) 39 U/L (16-63) Alkaline Phosphatase 314 U/L (46-116) Ammonia < 10 mcmol/L (11-34) Creatine Kinase 67 U/L (39-308) Troponin I Quantitative 0.048 ng/mL (0-0.055) CP-Twk-W-Type Natriuretic Peptide 1066 pg/mL (0-449) Total Protein 4.9 g/dL (6.4-8.2) Albumin 2.0 g/dL (3.4-5.0) Albumin/Globulin Ratio 0.7 (1.0-1.7) Glucose (Fingerstick) 97 mg/dL (70-99) Urine Collection Type U cath Urine Color Straw Urine Clarity Turbid Urine pH 5.5 Urine Specific [place] >=1.030 Urine Protein >100 mg/dl (NEG-TRACE) Urine Glucose (UA) Neg mg/dL (NEG) Urine Ketones (Stick) Trace mg/dL (NEG) Urine Blood Large (NEG) Urine Nitrite Pos (NEG) Urine Bilirubin Neg (NEG) Urine Urobilinogen Dipstick 1.0 mg/dL (0.2 mg/dL) Urine Leukocyte Esterase Trace (NEG) Urine RBC 11-20 /HPF (0-2) Urine WBC Tntc /HPF (0-4) Urine Bacteria Mod /HPF (0-FEW) Urine Opiates Screen Neg (NEG) Urine Methadone Screen Neg (NEG) Urine Barbiturates Neg (NEG) Urine Phencyclidine Screen Neg (NEG) Urine Amphetamine/Methamphetamine Neg (NEG) Urine Benzodiazepines Screen Neg (NEG) Urine Cocaine Screen Neg (NEG) Urine Cannabinoids Screen Pos (NEG) Urine Ethyl Alcohol Neg (NEG) Lactic Acid Level 2.1 mmol/L (0.4-2.0) Test 05/02/20 20:54 05/02/20 21:25 05/03/20 00:38 05/03/20 06:15 Glucose (Fingerstick) 92 mg/dL (70-99) 132 mg/dL (70-99) Lactic Acid Level 2.1 mmol/L (0.4-2.0) White Blood Count 12.9 x10^3/uL (4.0-11.0) Red Blood Count 4.06 x10^6/uL (4.30-5.70) Hemoglobin 11.8 g/dL (13.0-17.5) Hematocrit 36.7 % (39.0-53.0) Mean Corpuscular Volume 90 fL (79-100) Mean Corpuscular Hemoglobin 29 pg (25-35) Mean Corpuscular Hemoglobin Concent 32 g/dL (31-37) Red Cell Distribution Width 24.0 % (11.5-14.5) Platelet Count 134 x10^3/uL (140-400) Neutrophils (%) (Auto) 71 % (31-73) Lymphocytes (%) (Auto) 20 % (24-48) Monocytes (%) (Auto) 9 % (0-9) Eosinophils (%) (Auto) 0 % (0-3) Basophils (%) (Auto) 0 % (0-3) Neutrophils # (Auto) 9.1 x10^3uL (1.8-7.7) Lymphocytes # (Auto) 2.6 x10^3/uL (1.0-4.8) Monocytes # (Auto) 1.1 x10^3/uL (0.0-1.1) Eosinophils # (Auto) 0.0 x10^3/uL (0.0-0.7) Basophils # (Auto) 0.0 x10^3/uL (0.0-0.2) Platelet Estimate Decreased (ADEQUATE) Polychromasia Present Anisocytosis Slight Tear Drop Cells Few Ovalocytes Few Sodium Level 141 mmol/L (136-145) Potassium Level 2.3 mmol/L (3.5-5.1) Chloride Level 103 mmol/L (98-107) Carbon Dioxide Level 30 mmol/L (21-32) Anion Gap 8 (6-14) Blood Urea Nitrogen 16 mg/dL (8-26) Creatinine 0.9 mg/dL (0.7-1.3) Estimated GFR (Cockcroft-Gault) 82.0 Glucose Level 108 mg/dL (70-99) Calcium Level 9.2 mg/dL (8.5-10.1) Magnesium Level 1.9 mg/dL (1.8-2.4) Test 05/03/20 11:27 05/03/20 16:38 05/03/20 19:20 05/04/20 06:25 Glucose (Fingerstick) 139 mg/dL (70-99) 166 mg/dL (70-99) Sodium Level 138 mmol/L (136-145) 138 mmol/L (136-145) Potassium Level 2.4 mmol/L (3.5-5.1) 2.7 mmol/L (3.5-5.1) Chloride Level 100 mmol/L (98-107) 102 mmol/L (98-107) Carbon Dioxide Level 31 mmol/L (21-32) 35 mmol/L (21-32) Anion Gap 7 (6-14) 1 (6-14) Blood Urea Nitrogen 15 mg/dL (8-26) 14 mg/dL (8-26) Creatinine 0.9 mg/dL (0.7-1.3) 0.8 mg/dL (0.7-1.3) Estimated GFR (Cockcroft-Gault) 82.0 94.0 Glucose Level 178 mg/dL (70-99) 133 mg/dL (70-99) Calcium Level 9.0 mg/dL (8.5-10.1) 8.6 mg/dL (8.5-10.1) White Blood Count 12.7 x10^3/uL (4.0-11.0) Red Blood Count 3.79 x10^6/uL (4.30-5.70) Hemoglobin 11.0 g/dL (13.0-17.5) Hematocrit 34.3 % (39.0-53.0) Mean Corpuscular Volume 91 fL (79-100) Mean Corpuscular Hemoglobin 29 pg (25-35) Mean Corpuscular Hemoglobin Concent 32 g/dL (31-37) Red Cell Distribution Width 23.6 % (11.5-14.5) Platelet Count 100 x10^3/uL (140-400) Neutrophils (%) (Auto) 74 % (31-73) Lymphocytes (%) (Auto) 18 % (24-48) Monocytes (%) (Auto) 8 % (0-9) Eosinophils (%) (Auto) 0 % (0-3) Basophils (%) (Auto) 0 % (0-3) Neutrophils # (Auto) 9.4 x10^3uL (1.8-7.7) Lymphocytes # (Auto) 2.2 x10^3/uL (1.0-4.8) Monocytes # (Auto) 1.0 x10^3/uL (0.0-1.1) Eosinophils # (Auto) 0.0 x10^3/uL (0.0-0.7) Basophils # (Auto) 0.0 x10^3/uL (0.0-0.2) Test 05/04/20 08:22 Glucose (Fingerstick) 166 mg/dL (70-99) Microbiology Micro Microbiology 05/02/20 Blood Culture - Preliminary, Resulted NO GROWTH AFTER 1 DAY... Physical Exams HEENT: Neck Supple W Full Motion Chest: Symmetric Heart: irregularly irregular (v-paced ) Neurology: alert, oriented, follow commands Assessment Assessment 1. Encephalopathy in setting of UTI. 2. Acute on chronic diastolic CHF; better compensated following IV diuresis 3. CAD s/p CABG. CP free. Clinically stable 4. SSS s/p PPM (single chamber [facility] Raimundo). Recent device check with normal function. Follows with MICKY Espitia 5. Hypertension; low end 6. Hyperlipidemia; on Crestor 7. Diabetes, II; as per IM 8. s/p bioprosthetic AVR in 2008 9. Permanent AFIB s/p Watchman device. Previously on warfarin therapy, but this was discontinued d/t GIB 10. Cirrhosis with history of heavy alcoholism 11. Anasarca, protein calorie malnutrition 12. Leukocytosis, lactic acidosis. Recent admission of PNA/sepsis at [facility] 13. Hypokalemia, severe 14. BPH; on flomax 15. UTI; antibiotic therapy. 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 Check Mg and replace as warranted Albumin Ongoing antibiotic therapy. Supportive care ARTURO FUNES APRN May 04, 2020 09:19
[2020-05-04] MEDS ORDERED: ALBUMIN HUMAN 25% 50 ML IV ONE (09:45)
[2020-05-04 12:25] LABS: CALCIUM 8.8 mg/dL (8.5-10.1); GFR 72.6
[2020-05-04 13:06] LABS: POTASSIUM 2.5 mmol/L (3.5-5.1)
[2020-05-04] MEDS ORDERED: POTASSIUM CHLORIDE 20MEQ 100 ML IV SCH (14:30)
[2020-05-04 19:38] LABS: CALCIUM 8.8 mg/dL (8.5-10.1); GFR 72.6; POTASSIUM 3.1 mmol/L (3.5-5.1)
--- NOTE | 2020-05-04 20:13 | PN ---
DATE: 05/04/2020 SUBJECTIVE: The patient is resting, slightly propped up in bed, in no apparent distress, awake, alert, responding appropriately. On questioning him, he denied any chest pain or shortness of breath. Denies any nausea or vomiting. He seemed to be clinically congested; however, he has generalized anasarca and he continued to be extremely hypokalemic. His potassium was extremely low and today it was only 2.5 mEq per liter, although the serum magnesium was 1.9. PHYSICAL EXAMINATION: GENERAL: When I examined him, he looked pale, but not jaundiced or cyanosis. No lymphadenopathy, no thyromegaly. No jugular venous distention, but generalized anasarca. VITAL SIGNS: Her heart rate was 70, blood pressure was 111/60, temperature was 97, respiratory rate was 17, and oxygen saturation was 95% on 5 liters of oxygen. HEAD, EYES, EARS, NOSE AND THROAT: Showed normocephalic, atraumatic. NECK: Supple. HEART: Normal first and second heart sounds. No gallop or murmur. CHEST: Showed central trachea, equal bilateral expansion, air entry, vesicular sounds. No crepitation or rhonchi. ABDOMEN: Markedly distended, soft with positive shifting dullness. There is no tenderness. No guarding or rigidity. No organomegaly. All hernial orifices intact. Bowel sounds normal. NEUROLOGIC: He is awake, alert, responding appropriately. All his cranial nerves are intact. He moves extremities without difficulty. He has generalized anasarca, but no clubbing or cyanosis. He has no flapping tremor. His intake was 3060, output was 4550. LABORATORY DATA: As of this morning, serum sodium was 139, potassium 2.5, chloride 100, bicarbonate 31, anion gap of 8, BUN 15, creatinine 1, estimated GFR was 72 mL per minute, his glucose was 99. Calcium was 8.8, magnesium was 1.9. ASSESSMENT: 1. A 75-year-old gentleman with altered mental status, most likely multifactorial including perhaps hepatic encephalopathy. He also has urinary tract infection with the growth of more than 100,000 colony forming units per mL of gram-negative rods identified as Escherichia coli. 2. Fimqi-mb-rjejvnt congestive heart failure. 3. Alcoholic liver cirrhosis with portal hypertension, ascites. 4. History of acute lymphoblastic leukemia, currently on remission. 5. Recent pneumonia. 6. Chronic obstructive pulmonary disease, advanced. 7. Recent sepsis, urinary tract infection. 8. Paroxysmal atrial fibrillation, currently paced rhythm. 9. Iron deficiency anemia. 10. Type 2 diabetes mellitus. 11. Essential hypertension. 12. Generalized debility. 13. Severe hypokalemia. PLAN: To continue potassium supplement. Continue with IV antibiotic. I will add also spironolactone and to assist with potassium replacement. The patient's overall prognosis is very poor. He is DNR/DNI. I recommended hospice care and I spoke with our social services to discuss this option with his family. ERICA HAYDEN MD DR: HERMELINDA/nestor JOB#: [id number] / [id number]
[2020-05-04] MEDS: SPIRONOLACTONE 25 MG TABLET PO SCH (21:09)
[2020-05-04] MEDS: INSULIN GLARGINE SYRINGE. SQ SCH (21:11)
[2020-05-05] VITALS (15 sets, daily range): BP systolic 88–110; BP diastolic 49–69
--- NOTE | 2020-05-05 06:15 | NUR ---
Pt awake watching TV at change of shift, interacting appropriately with staff. Pt was pleasant and cooperative and even joked around with staff on occasion. Pt was transferred over to specialty bed x4 assist. Pt is forgetful as to why he is here, oriented to self and knows he is in the hospital. Pt slept most of night, waking for 2 snacks during night. Pt was able to feed himself independently, only needing setup help. Pt turned with wedge Q2 hours. Pt on occasion had facial grimace during position changes but stated that "once we got his old bones moving he was fine." Pt was incont of loose stool x1 on this shift.
[2020-05-05 06:32] LABS: BASO % 0 % (0-3); EOS % 0 % (0-3); HEMATOCRIT 30.5 % (39.0-53.0); HEMOGLOBIN 9.8 g/dL (13.0-17.5); LYMPH # 2.1 x10^3/uL (1.0-4.8); LYMPH % 17 % (24-48); MEAN CORPUSCULAR HEMOGLOBIN 30 pg (25-35); MEAN CORPUSCULAR HGB CONC 32 g/dL (31-37); MEAN CORPUSCULAR VOLUME 92 fL (79-100); MONO # 0.9 x10^3/uL (0.0-1.1); MONO % 7 % (0-9); NEUT # 9.3 x10^3uL (1.8-7.7); NEUT % 75 % (31-73); PLATELET COUNT 96 x10^3/uL (140-400); RED BLOOD COUNT 3.32 x10^6/uL (4.30-5.70); RED CELL DISTRIBUTION WIDTH 23.1 % (11.5-14.5); WHITE BLOOD COUNT 12.3 x10^3/uL (4.0-11.0)
[2020-05-05 06:38] LABS: ALBUMIN 1.8 g/dL (3.4-5.0); ALBUMIN/GLOBULIN RATIO 0.7 (1.0-1.7); CALCIUM 8.7 mg/dL (8.5-10.1); CREATININE 0.8 mg/dL (0.7-1.3); POTASSIUM 4.5 mmol/L (3.5-5.1); TOTAL BILIRUBIN 0.9 mg/dL (0.2-1.0); TOTAL PROTEIN 4.3 g/dL (6.4-8.2)
[2020-05-05] MEDS: FINASTERIDE 5 MG TABLET PO SCH (09:23)
[2020-05-05] MEDS: metFORMIN 500 MG TABLET PO SCH (09:23)
[2020-05-05] MEDS: PANTOPRAZOLE 40 MG TABLET. PO SCH (09:23)
[2020-05-05] MEDS: SPIRONOLACTONE 25 MG TABLET PO SCH ×2 (09:24→21:48)
[2020-05-05] MEDS: POTASSIUM CHLORIDE 20 MEQ TABLET.ER. PO SCH ×3 (09:24→21:48)
[2020-05-05] MEDS: LACTOBACILLUS RHAMNOSUS GG 1 CAPSULE. PO SCH ×2 (09:24→21:48)
[2020-05-05] MEDS: DEXAMETHASONE 0.5 MG TABLET PO SCH ×3 (09:24→21:48)
[2020-05-05] MEDS: VITS A & D/LANOLIN TOPICAL OINTMENT 42GM TUBE. TP SCH ×2 (09:25→21:47)
--- NOTE | 2020-05-05 09:28 | PDOC ---
CARDIO Progress Notes Date & Time Date of Service DATE: 05/05/20 TIME: 09:21 Time of Evaluation 09:21 Subjective Notes weak, tired Vitals Vitals Vital Signs Date Time Temp Pulse Resp B/P (MAP) Pulse Ox O2 Delivery O2 Flow Rate FiO2 05/05/20 06:15 97.9 70 16 95/59 (71) 97 Nasal Cannula 3.0 Weight Weight [ ] Input and Output I.O. Intake and Output 05/05/20 07:00 Intake Total 1680 ml Output Total 2800 ml Balance -1120 ml Intake Oral 1430 ml IV Total 200 ml Other 50 ml Output Urine Total 2800 ml # Bowel Movements 1 Laboratory Labs Laboratory Tests Test 05/03/20 11:27 05/03/20 16:38 05/03/20 19:20 05/04/20 06:25 Glucose (Fingerstick) 139 mg/dL (70-99) 166 mg/dL (70-99) Sodium Level 138 mmol/L (136-145) 138 mmol/L (136-145) Potassium Level 2.4 mmol/L (3.5-5.1) 2.7 mmol/L (3.5-5.1) Chloride Level 100 mmol/L (98-107) 102 mmol/L (98-107) Carbon Dioxide Level 31 mmol/L (21-32) 35 mmol/L (21-32) Anion Gap 7 (6-14) 1 (6-14) Blood Urea Nitrogen 15 mg/dL (8-26) 14 mg/dL (8-26) Creatinine 0.9 mg/dL (0.7-1.3) 0.8 mg/dL (0.7-1.3) Estimated GFR (Cockcroft-Gault) 82.0 94.0 Glucose Level 178 mg/dL (70-99) 133 mg/dL (70-99) Calcium Level 9.0 mg/dL (8.5-10.1) 8.6 mg/dL (8.5-10.1) White Blood Count 12.7 x10^3/uL (4.0-11.0) Red Blood Count 3.79 x10^6/uL (4.30-5.70) Hemoglobin 11.0 g/dL (13.0-17.5) Hematocrit 34.3 % (39.0-53.0) Mean Corpuscular Volume 91 fL (79-100) Mean Corpuscular Hemoglobin 29 pg (25-35) Mean Corpuscular Hemoglobin Concent 32 g/dL (31-37) Red Cell Distribution Width 23.6 % (11.5-14.5) Platelet Count 100 x10^3/uL (140-400) Neutrophils (%) (Auto) 74 % (31-73) Lymphocytes (%) (Auto) 18 % (24-48) Monocytes (%) (Auto) 8 % (0-9) Eosinophils (%) (Auto) 0 % (0-3) Basophils (%) (Auto) 0 % (0-3) Neutrophils # (Auto) 9.4 x10^3uL (1.8-7.7) Lymphocytes # (Auto) 2.2 x10^3/uL (1.0-4.8) Monocytes # (Auto) 1.0 x10^3/uL (0.0-1.1) Eosinophils # (Auto) 0.0 x10^3/uL (0.0-0.7) Basophils # (Auto) 0.0 x10^3/uL (0.0-0.2) Test 05/04/20 08:22 05/04/20 11:34 05/04/20 19:20 05/04/20 20:49 Glucose (Fingerstick) 166 mg/dL (70-99) 200 mg/dL (70-99) Sodium Level 139 mmol/L (136-145) 136 mmol/L (136-145) Potassium Level 2.5 mmol/L (3.5-5.1) 3.1 mmol/L (3.5-5.1) Chloride Level 100 mmol/L (98-107) 100 mmol/L (98-107) Carbon Dioxide Level 31 mmol/L (21-32) 29 mmol/L (21-32) Anion Gap 8 (6-14) 7 (6-14) Blood Urea Nitrogen 15 mg/dL (8-26) 15 mg/dL (8-26) Creatinine 1.0 mg/dL (0.7-1.3) 1.0 mg/dL (0.7-1.3) Estimated GFR (Cockcroft-Gault) 72.6 72.6 Glucose Level 199 mg/dL (70-99) 199 mg/dL (70-99) Calcium Level 8.8 mg/dL (8.5-10.1) 8.8 mg/dL (8.5-10.1) Magnesium Level 1.9 mg/dL (1.8-2.4) Test 05/05/20 06:11 05/05/20 08:11 White Blood Count 12.3 x10^3/uL (4.0-11.0) Red Blood Count 3.32 x10^6/uL (4.30-5.70) Hemoglobin 9.8 g/dL (13.0-17.5) Hematocrit 30.5 % (39.0-53.0) Mean Corpuscular Volume 92 fL (79-100) Mean Corpuscular Hemoglobin 30 pg (25-35) Mean Corpuscular Hemoglobin Concent 32 g/dL (31-37) Red Cell Distribution Width 23.1 % (11.5-14.5) Platelet Count 96 x10^3/uL (140-400) Neutrophils (%) (Auto) 75 % (31-73) Lymphocytes (%) (Auto) 17 % (24-48) Monocytes (%) (Auto) 7 % (0-9) Eosinophils (%) (Auto) 0 % (0-3) Basophils (%) (Auto) 0 % (0-3) Neutrophils # (Auto) 9.3 x10^3uL (1.8-7.7) Lymphocytes # (Auto) 2.1 x10^3/uL (1.0-4.8) Monocytes # (Auto) 0.9 x10^3/uL (0.0-1.1) Eosinophils # (Auto) 0.0 x10^3/uL (0.0-0.7) Basophils # (Auto) 0.0 x10^3/uL (0.0-0.2) Prothrombin Time 10.5 SEC (9.4-11.4) Prothromb Time International Ratio 1.0 (0.9-1.1) Sodium Level 138 mmol/L (136-145) Potassium Level 4.5 mmol/L (3.5-5.1) Chloride Level 104 mmol/L (98-107) Carbon Dioxide Level 31 mmol/L (21-32) Anion Gap 3 (6-14) Blood Urea Nitrogen 15 mg/dL (8-26) Creatinine 0.8 mg/dL (0.7-1.3) Estimated GFR (Cockcroft-Gault) 94.0 BUN/Creatinine Ratio 19 (6-20) Glucose Level 180 mg/dL (70-99) Calcium Level 8.7 mg/dL (8.5-10.1) Total Bilirubin 0.9 mg/dL (0.2-1.0) Aspartate Amino Transf (AST/SGOT) 31 U/L (15-37) Alanine Aminotransferase (ALT/SGPT) 28 U/L (16-63) Alkaline Phosphatase 261 U/L (46-116) Ammonia 39 mcmol/L (11-34) Total Protein 4.3 g/dL (6.4-8.2) Albumin 1.8 g/dL (3.4-5.0) Albumin/Globulin Ratio 0.7 (1.0-1.7) Glucose (Fingerstick) 200 mg/dL (70-99) Microbiology Micro Microbiology 05/02/20 Urine Culture - Final, Complete 05/02/20 Antimicrobic Susceptibility - Final, Complete 05/02/20 Blood Culture - Preliminary, Resulted NO GROWTH AFTER 2 DAYS... Physical Exams HEENT: Neck Supple W Full Motion Chest: Symmetric Heart: irregularly irregular (v-paced ) Neurology: alert, oriented, follow commands Assessment Assessment 1. Encephalopathy in setting of UTI. 2. Acute on chronic diastolic CHF; better compensated following IV diuresis 3. CAD s/p CABG. CP free. Clinically stable 4. SSS s/p PPM (single chamber [facility]. Raimundo). Recent device check with normal function. Follows with MICKY Espitia 5. Hypertension; low end 6. Hyperlipidemia; on Crestor 7. Diabetes, II; as per IM 8. s/p bioprosthetic AVR in 2008 9. Permanent AFIB s/p Watchman device. Previously on warfarin therapy, but this was discontinued d/t GIB 10. Cirrhosis with history of heavy alcoholism 11. Anasarca, protein calorie malnutrition 12. Leukocytosis, lactic acidosis. Recent admission of PNA/sepsis at [facility] 13. Hypokalemia, severe 14. BPH; on flomax 15. UTI; antibiotic therapy. 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 Probably aspiration Poor prognosis. Agree with Hospice services. Supportive care ARTURO FUNES APRN May 05, 2020 09:28
[2020-05-05] MEDS: FUROSEMIDE 40 MG TABLET PO SCH (11:00)
--- NOTE | 2020-05-05 16:16 | RAD ---
INDICATION: Reason: both lower extremities are swollen / Spl. Instructions: / History: COMPARISON: None. TECHNIQUE: Grayscale, color and doppler ultrasound images were obtained of the bilateral lower extremity venous vasculature. RIGHT: Vascular flow seen in the common femoral, popliteal as well as visualized calf veins. Thrombus is seen within the right superficial femoral vein. LEFT: No thrombus identified in the common femoral vein, femoral vein, popliteal vein or visualized calf veins. IMPRESSION: * Thrombus within right superficial femoral vein. * Within the right groin there is a 63 x 14 mm complex fluid collection identified. * Edema throughout the soft tissues. Electronically signed by: Jose Taylor MD (05/05/2020 4:12 PM) [id number]
--- NOTE | 2020-05-05 18:00 | NUR ---
pt had a good day, he has been alert and oriented most of the day. He does have brief episodes of confusion, but can easily direct him. They are starting to happen more often now that he could be "ing". Pt was complaining of left leg pain while we were repositioning pt. Dr. Jackson ordered a bilateral venous doppler, which shows a thrombus on the right superficial femoral vein. Dr. Jackson started pt on eliquis to start tonight. Pt has had 2 soft bowel movement today, A& D ointment and barrier cream applied after cleaning the area. Pt will be returning to [facility] tomorrow, until pt's children and pt's decide the next plans, since they just moved into a new home. CM faxed all information to [facility] this afternoon, including discharge medication list and outside facility DNR.
--- NOTE | 2020-05-05 18:08 | PN ---
DATE: 05/05/2020 SUBJECTIVE: The patient is resting, slightly propped up in bed, in no apparent distress. On questioning him, he denied any chest pain, shortness of breath, cough, phlegm or hemoptysis. However, he continued to have generalized aches and pains, particularly in both his lower extremities. His legs are extremely swollen, particularly his feet. He has bilateral gluteal decubitus ulcer. He is unable to move or even change his position. We have had a lengthy discussion with his regarding the goals of care and we suggested hospice care; however, she wanted to be transferred back to [facility] until his children arrive to decide on the hospice care. PHYSICAL EXAMINATION: GENERAL: When I examined him this afternoon, he looked pale, no jaundice, cyanosis or thyromegaly. No jugular venous distention or limb edema. VITAL SIGNS: His heart rate was 70, blood pressure was 109/49, temperature was 97.8, respiratory rate was 22 and oxygen saturation was 98% on 3 liters of oxygen. HEAD, EYES, EARS, NOSE AND THROAT: Showed normocephalic, atraumatic. NECK: Supple. HEART: Showed normal first and second heart sounds. No gallop, rub or murmur. CHEST: Clear to auscultation. No crepitation or rhonchi. ABDOMEN: Distended with positive shifting dullness. No guarding or rigidity. No organomegaly. All hernial orifices intact. Bowel sounds normal. NEUROLOGIC: He is awake, alert, responding appropriately. All cranial nerves are intact. He moves upper extremities to much good extent than lower extremities. He has no flapping tremor. EXREMITIES: Examination of the extremities showed bilateral lower extremity edema. No clubbing or cyanosis. He has also bilateral gluteal at least stage 2 decubitus ulcer. His intake was 1325, output was 1950. LABORATORY DATA: His lab work as of this morning showed a serum sodium 138, potassium 4.5, chloride 104, bicarbonate 31, anion gap of 3, BUN of 15, creatinine 0.8, estimated GFR was 94 mL per minute. His glucose 180, calcium was 8.7. Total bilirubin, AST, ALT were normal. Alkaline phosphatase was elevated. His ammonia is rising; it is now 39 micromole per liter. Total protein was 4.3, albumin was 1.8. ASSESSMENT: 1. A 75-year-old gentleman with altered mental status, most likely multifactorial including perhaps hepatic encephalopathy; also has urinary tract infection with growth of more than 100,000 colony forming units per mL of gram-negative rods identified as Escherichia coli. 2. Acute on chronic congestive heart failure. 3. Alcoholic liver cirrhosis, portal hypertension, ascites. 4. History of acute lymphoblastic leukemia, currently in remission. 5. Recent pneumonia. 6. Chronic obstructive pulmonary disease, advanced. 7. Recent sepsis due to urinary tract infection. 8. Paroxysmal atrial fibrillation, currently paced rhythm. 9. Iron deficiency anemia. 10. Type 2 diabetes mellitus. 11. Essential hypertension. 12. Generalized debility. 13. Severe hypokalemia that has resolved. 14. Bilateral lower extremity edema, more so on the left than right, for which I have arranged for him to have bilateral lower extremity venous Doppler ultrasound. In discussion with the , he is obviously now a DNR/DNI. PLAN: For him is to be discharged back to [facility], allowing time for the children to arrive from different states so that they can discuss the option of hospice as the patient has too numerous multiple comorbidities and overall extremely poor prognosis. ERICA HAYDEN MD DR: HERMELINDA/nestor JOB#: [id number] / [id number]
[2020-05-05] MEDS: APIXABAN 5 MG TABLET. PO SCH (21:48)
[2020-05-05] MEDS: AMOXICILLIN/K CLAV 500/125MG TABLET. PO SCH (21:48)
[2020-05-05] MEDS: INSULIN GLARGINE SYRINGE. SQ SCH (21:54)
[2020-05-06 03:05] VITALS: BP 85/62
[2020-05-06 05:10] VITALS: BP 90/62
[2020-05-06 05:27] LABS: CALCIUM 8.8 mg/dL (8.5-10.1); CREATININE 0.7 mg/dL (0.7-1.3); GFR 109.6; POTASSIUM 4.1 mmol/L (3.5-5.1)
[2020-05-06] MEDS: PANTOPRAZOLE 40 MG TABLET. PO SCH (08:35)
[2020-05-06] MEDS: FUROSEMIDE 40 MG TABLET PO SCH ×2 (08:35→09:00)
[2020-05-06] MEDS: FINASTERIDE 5 MG TABLET PO SCH (08:35)
[2020-05-06] MEDS: metFORMIN 500 MG TABLET PO SCH (08:35)
[2020-05-06] MEDS: LACTOBACILLUS RHAMNOSUS GG 1 CAPSULE. PO SCH (08:35)
[2020-05-06] MEDS: AMOXICILLIN/K CLAV 500/125MG TABLET. PO SCH (08:35)
[2020-05-06] MEDS: DEXAMETHASONE 0.5 MG TABLET PO SCH (08:36)
[2020-05-06] MEDS: APIXABAN 5 MG TABLET. PO SCH (08:36)
[2020-05-06] MEDS: POTASSIUM CHLORIDE 20 MEQ TABLET.ER. PO SCH (08:37)
[2020-05-06] MEDS: VITS A & D/LANOLIN TOPICAL OINTMENT 42GM TUBE. TP SCH (08:37)
[2020-05-06 09:00] VITALS: BP 113/69
[2020-05-06] MEDS: SPIRONOLACTONE 25 MG TABLET PO SCH (09:00)
--- NOTE | 2020-05-06 10:05 | NUR ---
Discharge Note: [facility] Discharge instructions and discharge home medications reviewed with Patient and a copy given and report called to [facility]. All questions have been answered and understanding verbalized. Peripheral IV discontinued. Patient discharged to Shelter Facility at [facility] with Ambulance Personnel via [facility]. All belongings were discharged with pt.
--- NOTE | 2020-05-06 14:37 | DS ---
DATE OF DISCHARGE: HOSPITAL COURSE: The patient is a 75-year-old male patient who was transferred from [facility] on account of altered mental status. He was extensively investigated and was seen by the security vehicle patrol officer, was treated aggressively with IV Lasix for his acute on chronic diastolic congestive heart failure. 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 He did have also urinary tract infection. He did generally very well. His mental status has improved; however, he continued to have generalized anasarca due to third spacing and severe hypoalbuminemia. I did actually ultrasound of his both lower extremities and this showed that he has deep vein thrombosis of his left superficial femoral vein. His potassium was extremely low and therefore we added spironolactone and his potassium has finally improved and a decision was made to transfer him back to [facility] to continue the process of rehabilitation, wound care and nutritional support. OBJECTIVE: GENERAL: On examining him, he looked well and was clearly in no apparent respiratory distress. He was pale, but no jaundice, cyanosis or thyromegaly. No jugular venous distention. Marked bilateral lower limb edema. VITAL SIGNS: His heart rate was 70, blood pressure was 90/60, temperature 97.4, respiratory rate was 16, and oxygen saturation was 98% on 3 liters of oxygen. HEAD, EYES, EARS, NOSE AND THROAT: Showed normocephalic, atraumatic. NECK: Supple. CARDIAC: Normal first and second heart sounds with no gallop, rub or murmur. CHEST: Clear to auscultation. No crepitation or rhonchi. ABDOMEN: Markedly distended, soft with positive shifting dullness. No tenderness. No guarding or rigidity. No organomegaly. All hernial orifices intact. Bowel sounds normal. NEUROLOGIC: He is definitely more awake, alert, responding appropriately. All his cranial nerves are intact. He moves upper extremities to much good extent than lower extremities; however, he is mostly bed bound. EXTREMITIES: He has stage 2 bilateral gluteal decubitus ulcer. Marked bilateral lower extremity swelling. His intake over the last 24 hours was 1680, output was 3250. LABORATORY DATA: This morning, his chemistry this morning showed a serum sodium 139, potassium 4.1, chloride 103, bicarbonate 33, anion gap of 3, BUN 13, creatinine 0.7, estimated GFR was 110 mL per minute, his glucose 147, calcium was 8.8. DISCHARGE MEDICATIONS: He was discharged back to [facility] to continue on apixaban 5 mg twice a day, amoxicillin/clavulanic acid 500/125 one tablet twice a day for 7 more days, furosemide 40 mg once a day, spironolactone 50 mg twice a day, potassium chloride 40 mEq 3 times a day, Lactobacillus rhamnosus 1 capsule twice a day, finasteride 5 mg once a day, metformin 1000 mg daily, Protonix 40 mg once a day and Lantus insulin 10 units at bedtime. He is also on dexamethasone 1 mg 3 times a day and ondansetron 8 mg p.o. every 8 hours as needed. FINAL DISCHARGE DIAGNOSES: 1. Altered mental status, most likely multifactorial including perhaps hepatic encephalopathy as well as urinary tract infection with the growth of more than 100,000 colony forming units per mL of gram-negative rods identified as Escherichia coli. 2. Acute on chronic diastolic congestive heart failure. 3. Alcoholic liver cirrhosis with portal hypertension and ascites. 4. History of acute lymphoblastic leukemia, currently in remission. 5. Recent pneumonia. 6. Chronic obstructive pulmonary disease that is advanced. 7. Recent sepsis due to urinary tract infection. 8. Paroxysmal atrial fibrillation, currently pace controlled. 9. Iron deficiency anemia. 10. Type 2 diabetes mellitus. 11. Essential hypertension. 12. Generalized debility. 13. Severe hypokalemia that has finally resolved. 14. Bilateral lower extremity edema, more so on the left than right, with venous Doppler ultrasound showing deep vein thrombosis in the left side. PLAN: To discharge him back to [facility] to continue with physical and occupational therapy, wound care and offloading his wounds. Apparently, the is ultimately considering hospice care. ERICA HAYDEN MD DR: HERMELINDA/nestor JOB#: [id number] / [id number]
== END 2020-05-06 10:05 | DRG 871 ==
LOC: ER 13:30 → ICU 16:15
PROVIDERS: ADMIT Hospitalist; ATTEND Internal Medicine
DX: A41.9 Sepsis, unspecified organism (principal); G93.41 Metabolic encephalopathy; I50.33 Acute on chronic diastolic (congestive) heart failure; J96.10 Chronic respiratory failure, unspecified whether with hypoxia or hypercapnia; N39.0 Urinary tract infection, site not specified; C83.50 Lymphoblastic (diffuse) lymphoma, unspecified site; E87.2 Acidosis; E46 Unspecified protein-calorie malnutrition; I48.21 Permanent atrial fibrillation; K76.6 Portal hypertension; C91.01 Acute lymphoblastic leukemia, in remission; K72.90 Hepatic failure, unspecified without coma; K70.31 Alcoholic cirrhosis of liver with ascites; E11.40 Type 2 diabetes mellitus with diabetic neuropathy, unspecified; E78.5 Hyperlipidemia, unspecified; I25.10 Atherosclerotic heart disease of native coronary artery without angina pectoris; K21.9 Gastro-esophageal reflux disease without esophagitis; N40.0 Benign prostatic hyperplasia without lower urinary tract symptoms; D50.9 Iron deficiency anemia, unspecified; M19.90 Unspecified osteoarthritis, unspecified site; E87.6 Hypokalemia; I49.5 Sick sinus syndrome; F03.90 Unspecified dementia, unspecified severity, without behavioral disturbance, psychotic disturbance, mood disturbance, and anxiety; F10.26 Alcohol dependence with alcohol-induced persisting amnestic disorder; L89.322 Pressure ulcer of left buttock, stage 2; L89.312 Pressure ulcer of right buttock, stage 2; J44.9 Chronic obstructive pulmonary disease, unspecified; Z66 Do not resuscitate; I11.0 Hypertensive heart disease with heart failure; Z51.5 Encounter for palliative care; B96.20 Unspecified Escherichia coli [E. coli] as the cause of diseases classified elsewhere; H10.89 Other conjunctivitis; Z68.27 Body mass index [BMI] 27.0-27.9, adult; Z95.1 Presence of aortocoronary bypass graft; Z95.0 Presence of cardiac pacemaker; Z95.3 Presence of xenogenic heart valve; Z87.01 Personal history of pneumonia (recurrent); Z79.01 Long term (current) use of anticoagulants
CPT/HCPCS: 36415; 51702; 71045; 80048; 80053; 80307; 81001; 82140; 82550; 82947; 83605; 83735; 83880; 84484; 85025; 85610; 87040; 87077; 87086; 87186; 93005; 93306; 93970; 96365; J0696; J1815; J1940; J3475; J3480; J7040; J8540; P9046; Q0162; 92610; 99291-25